=== PATIENT | female | born 1960 | race Caucasian/White ===

== ENCOUNTER 2024-02-24 21:10 | Inpatient (IN) | payer OTHER, SELFPAY ==
--- NOTE | ~2024-02-24 | CT_ITS ---
EXAMINATION: CT ABDOMEN AND PELVIS WITH CONTRAST CLINICAL INFORMATION: Left lower quadrant pain, history of colon cancer with resection COMPARISON: None available. TECHNIQUE: Multidetector volumetric images were obtained from the superior aspect of the liver through the pubic symphysis following administration 85 mL of Omnipaque 350 intravenous contrast. Sagittal and coronal reformatted images were obtained on the technologist's workstation. Oral contrast: No This CT examination was performed using dose optimization techniques as appropriate, variously including the following: *Automated exposure control *Adjustment of mA and/or kV according to patient size (this includes techniques or standardized protocols for targeted exams where dose is matched to indication/reason for exam; i.e. extremities or head) *Use of iterative reconstruction technique DLP: 597 mGy-cm FINDINGS: LUNG BASES: Minimal lower lobe atelectasis. LIVER, GALLBLADDER, AND BILIARY TREE: The liver is normal in size, shape, and attenuation. No focal hepatic lesion or biliary ductal dilatation is present. The gallbladder is unremarkable with no evidence of radiopaque gallstones, gallbladder wall thickening, or obvious pericholecystic inflammatory changes. PANCREAS: Unremarkable. SPLEEN: Unremarkable. ADRENAL GLANDS: Unremarkable. KIDNEYS AND URETERS: Bilateral nephrograms are symmetric. No hydronephrosis or obstructing calculus identified. Tiny hypodensity in the right upper pole statistically favors a cyst; no follow-up recommended. BLADDER: Mildly distended and grossly unremarkable. GASTROINTESTINAL TRACT: Suture line is present in the sigmoid colon. No evidence of bowel obstruction or significant wall thickening. The appendix is fluid-filled and dilated to approximately 1.4 cm in the right lower quadrant and also contains a few appendicoliths. There is mild surrounding stranding, and overall appearance is suspicious for acute appendicitis. No free fluid or free air is seen. ABDOMINAL WALL: No significant hernia is appreciated. LYMPH NODES: Normal. VASCULAR: Scattered atherosclerotic calcifications. PELVIC VISCERA: Unremarkable. OSSEOUS STRUCTURES: Disc space narrowing noted in the lower lumbar spine. CT/CT abdomen pelvis w IV con IMPRESSION: Findings suspicious for acute appendicitis as described above.
[2024-02-24 21:17] VITALS: BP 122/59; BP 157/90; PULSE 60; PULSE 72; RESP 14; TEMP 36.6; O2SAT 94; O2SAT 95; BMI 28.5
--- NOTE | 2024-02-24 21:28 | ECG_ITS ---
Test Reason : ABD PAIN Blood Pressure : / mmHG Vent. Rate : 073 BPM Atrial Rate : 073 BPM P-R Int : 184 ms QRS Dur : 096 ms QT Int : 404 ms P-R-T Axes : 066 023 061 degrees QTc Int : 445 ms Normal sinus rhythm with sinus arrhythmia Possible Left atrial enlargement Incomplete right bundle branch block Borderline ECG No previous ECGs available Referred By: Generic ED Physician Electronically Signed By:Ankur Clements
[2024-02-24 22:04] LABS: Basophils Percent Auto 0.2 % (0-2); Eosinophils Percent Auto 0.1 % (0-4); Hemoglobin 14.5 g/dl (12.0-16.0); Imm Gran Abs Auto 0.06 X10*3/uL (0.00-0.03); Imm Gran Pct Auto 0.4 % (0.0-0.4); Lymphocytes Absolute Auto 0.9 X10*3/uL (1.2-4.9); Lymphocytes Percent Auto 5.2 % (20-40); MANUAL DIFF FLAG SCAN; Mean Corpuscular HGB Conc 36.3 g/dl (31.0-35.0); Mean Corpuscular Hemoglobin 32.7 pg (27.0-33.0); Mean Corpuscular Volume 90.1 fL (80.0-98.0); Mean Platelet Volume 9.8 fL (9.4-12.3); Monocytes Absolute Auto 0.5 X10*3/uL (0.1-1.2); Monocytes Percent Auto 2.9 % (2-11); Neutrophils Percent Auto 91.2 % (45-73); Platelet Count 252 X10*3/uL (160-400); Red Blood Count 4.44 X10*6/uL (4.20-5.50); Red Cell Distribution Width 12.1 % (11.0-16.0); SCAN SMEAR FLAG 1; White Blood Count 16.5 X10*3/uL (4.8-10.8)
[2024-02-24 22:17] LABS: Alanine Aminotransferase 29 U/L (0-31); Albumin Level 4.4 g/dL (3.5-5.0); Alkaline Phosphatase 97 U/L (39-117); Anion Gap 15 (12-20); Aspartate Amino Transferase 24 U/L (5-31); Bilirubin Direct 0.3 mg/dL (0.0-0.5); Blood Urea Nitrogen 12 mg/dL (9-16); Calcium 9.3 mg/dL (8.4-10.2); Carbon Dioxide 23 mmol/L (22-29); Chloride 103 mmol/L (96-108); Creatinine Clr Calc Pharmacy 114.6; Estimated Glomerular Filt Rate > 60; Glucose Random 145 mg/dL (60-115); Lipase 22 U/L (8-78); Potassium 3.8 mmol/L (3.3-5.1); Sodium 137 mmol/L (135-145); Total Protein 6.9 g/dL (6.5-8.0)
[2024-02-24 22:35] LABS: Troponin-I High Sensitivity < 2.7 ng/L (<3.5-17.0)
[2024-02-24 22:36] LABS: SLIDE REVIEW VERIFIED
--- NOTE | 2024-02-24 22:43 | ED.ABDPAIN ---
HPI - Abdominal Pain General Chief Complaint: Abdominal Pain Stated Complaint: ABD PAIN HX COLON CA Time Seen by Provider: 02/24/24 21:38 Source: patient and family Mode of arrival: ambulatory Limitations: no limitations History of Present Illness HPI narrative: Patient comes to the emergency room complaining of abdominal pain. Patient states that approximately 10 hours ago patient started having sharp left lower quadrant pain. Patient states that the pain is constant, patient has had multiple episodes of nausea vomiting, no diarrhea. Patient denies hematuria or dysuria, no flank pain. Related Data Allergies Allergy/AdvReac Type Severity Reaction Status Date / Time Sulfa (Sulfonamide Allergy Rash Verified 02/24/24 21:26 Antibiotics) Review of Systems Review of Systems Constitutional : No Weight loss, No Fever, No Chills, No Night Sweats, No Fatigue, No Malaise ENT/Mouth : No Hearing loss, No Ear Pain, No Nasal Congestion, No Sinus Pain, No Hoarseness, No sore throat, No Rhinorrhea, No Swallowing Difficulty Eyes: No Eye Pain, No Swelling, No Redness, No Foreign Body, No Discharge, No Vision Changes Cardiovascular : No Chest Pain, No SOB, No Dyspnea on Exertion, No Orthopnea, No Edema, No Palpitations Respiratory : No Cough, No Sputum, No Wheezing, No Smoke Exposure, No Dyspnea Gastrointestinal : Patient complaining of nausea and vomiting, no diarrhea, complaining of left lower quadrant pain, constant, nonradiating Genitourinary : no irregular bleeding, No Dysuria, No Urinary Frequency, No Hematuria, No Urinary Incontinence, No Urgency, No Flank Pain, No Urinary Flow Changes, No Hesitancy Musculoskeletal : No joint pain, No Myalgias, No Joint Swelling Skin : No Skin Lesions, No rash Neuro : No Weakness, No Numbness, No Paresthesias, No Loss of Consciousness, No Dizziness, No Headache Psych : No Anxiety/Panic, No Depression, No SI/HI/AH/VH, No Social Issues, Heme/Lymph: No Bruising, No Bleeding,No Lymphadenopathy Endocrine : No Polyuria, No Polydipsia, No Temperature Intolerance [facility] Past Medical History Medical History (Updated 02/25/24 @ 00:51 by Maggy Francois MD) Colon cancer Surgical History (Updated 02/24/24 @ 22:45 by Maggy Francois MD) History of partial colectomy Social History Social History Smoked in Last 30 Days: Yes Use of substances other than those prescribed or required for medical reasons: No Advance Directives: No Advance Directives Information Provided: Yes Do you have a plan to hurt others: No Plan Patient : No Physical Exam ED Vital Signs: Vital Signs - 24 hr 02/24/24 21:17 Temperature 97.9 F Pulse Rate 72 Respiratory Rate 14 Blood Pressure 122/59 L Pulse Oximetry 94 Oxygen Delivery Method Room Air BMI result Body Mass Index 28.5 Const Other: Appearance: Alert. Oriented X3. Patient looks very uncomfortable Eyes: Pupils equal, round and reactive to light. ENT: Pharynx normal. Neck: Normal inspection. Neck supple. No lymph nodes noted. No crepitus CVS: Normal heart rate and rhythm. Pulses normal. Normal S1 and S2 Respiratory: No respiratory distress. Breath sounds normal. No Wheezing. No rales Abdomen: Soft , nondistended, significantly tender to palpation in the right lower quadrant, but also tenderness to palpation in the left lower quadrant, no rebound or guarding Skin: Skin warm and dry. Normal skin color. Normal skin turgor. Extremities: No lower extremity edema. No Lacerations. No Rash Neuro: Oriented X 3. No motor deficit. No sensory deficit. Moving all extremities. No slurred speech. CN 2 through 12 grossly intact Psych: calm, cooperative, normal affect Course Course Course Narrative: Patient receiving IV fluids, Zofran and morphine. Medical Decision Making Medical Decision Making [facility] Narrative: -my interpretation of labs, patient's white blood cell count 16.5, chemistry unremarkable LFTs within normal limits, lipase normal, troponin negative -my deposition CT scan: Appendicolith pending, likely appendicitis -CT scan report: Appendicitis -I discussed the patient with Dr. Rodriguez, patient being admitted Differential Diagnosis Differential Diagnoses: The differential diagnosis associated with the presentation includes (Small-bowel obstruction, appendicitis, diverticulitis, perforation) Admission/Observation Consideration of admission/observation: Escalation of care including admission/observation considered Consult Healthcare Provider Management of the patient was discussed with: Journeyman Electrician Pv Installer Lab Data [facility] Lab Attestation statement: I reviewed the patient's lab results. 02/24/24 21:58 02/24/24 21:58 Labs: Lab Results 02/24/24 Range/Units 21:58 WBC 16.5 H (4.8-10.8) X10*3/uL RBC 4.44 (4.20-5.50) X10*6/uL Hgb 14.5 (12.0-16.0) g/dl Hct 40.0 (37.0-47.0) % MCV 90.1 (80.0-98.0) fL MCH 32.7 (27.0-33.0) pg MCHC 36.3 H (31.0-35.0) g/dl RDW 12.1 (11.0-16.0) % Plt Count 252 (160-400) X10*3/uL MPV 9.8 (9.4-12.3) fL Immature Gran % (Auto) 0.4 (0.0-0.4) % Neut % (Auto) 91.2 H (45-73) % Lymph % (Auto) 5.2 L (20-40) % Archuleta % (Auto) 2.9 (2-11) % Eos % (Auto) 0.1 (0-4) % Baso % (Auto) 0.2 (0-2) % Lymph # (Auto) 0.9 L (1.2-4.9) X10*3/uL Archuleta # (Auto) 0.5 (0.1-1.2) X10*3/uL Eos # (Auto) 0.0 (0.0-0.4) X10*3/uL Baso # (Auto) 0.0 (0.0-0.2) X10*3/uL Abs Immat Gran (auto) 0.06 H (0.00-0.03) X10*3/uL Absolute Neuts (auto) 15.0 H (2.0-8.3) x10*3/uL Absolute Nucleated RBC 0.000 (0.0-0.012) X10*3/uL Nucleated RBC % (auto) 0.0 (0.0-0.2) /100WBC Smear Tech's Comments VERIFIED Sodium 137 (135-145) mmol/L Potassium 3.8 (3.3-5.1) mmol/L Chloride 103 (96-108) mmol/L Carbon Dioxide 23 (22-29) mmol/L Anion Gap 15 (12-20) BUN 12 (9-16) mg/dL Creatinine 0.62 (0.5-1.4) mg/dL Estim Creat Clear Calc 114.6 Estimated GFR > 60 Random Glucose 145 H (60-115) mg/dL Calcium 9.3 (8.4-10.2) mg/dL Total Bilirubin 1.0 (0.0-1.0) mg/dL Direct Bilirubin 0.3 (0.0-0.5) mg/dL AST 24 (5-31) U/L ALT 29 (0-31) U/L Alkaline Phosphatase 97 (39-117) U/L Troponin I High Sens < 2.7 (<3.5-17.0) ng/L Total Protein 6.9 (6.5-8.0) g/dL Albumin 4.4 (3.5-5.0) g/dL Lipase 22 (8-78) U/L Independent Interpretation I performed an independent interpretation of an: CT Scan Radiology Impression Radiologist Impression: FINDINGS: LUNG BASES: Minimal lower lobe atelectasis. LIVER, GALLBLADDER, AND BILIARY TREE: The liver is normal in size, shape, and attenuation. No focal hepatic lesion or biliary ductal dilatation is present. The gallbladder is unremarkable with no evidence of radiopaque gallstones, gallbladder wall thickening, or obvious pericholecystic inflammatory changes. PANCREAS: Unremarkable. SPLEEN: Unremarkable. ADRENAL GLANDS: Unremarkable. KIDNEYS AND URETERS: Bilateral nephrograms are symmetric. No hydronephrosis or obstructing calculus identified. Tiny hypodensity in the right upper pole statistically favors a cyst; no follow-up recommended. BLADDER: Mildly distended and grossly unremarkable. GASTROINTESTINAL TRACT: Suture line is present in the sigmoid colon. No evidence of bowel obstruction or significant wall thickening. The appendix is fluid-filled and dilated to approximately 1.4 cm in the right lower quadrant and also contains a few appendicoliths. There is mild surrounding stranding, and overall appearance is suspicious for acute appendicitis. No free fluid or free air is seen. ABDOMINAL WALL: No significant hernia is appreciated. LYMPH NODES: Normal. VASCULAR: Scattered atherosclerotic calcifications. PELVIC VISCERA: Unremarkable. OSSEOUS STRUCTURES: Disc space narrowing noted in the lower lumbar spine. CT/CT abdomen pelvis w IV con IMPRESSION: Findings suspicious for acute appendicitis as described above. Medications Administered Discontinued Medications Generic Name Dose Route Start Last Admin Trade Name Freq PRN Reason Stop Dose Admin Sodium Chloride 1,000 mls @ 999 mls/hr 02/24/24 22:23 02/25/24 00:27 Ns IVCONT 02/24/24 23:23 Infused .Q1H1M ONE Infusion Iohexol 100 ml 02/24/24 22:44 02/24/24 22:44 Iohexol 350 Mg/Ml 100 Ml Infus..Btl IV 02/24/24 22:45 85 ml ONCE ONE Administration Morphine Sulfate 4 mg 02/24/24 22:23 02/24/24 23:07 Morphine Sulfate 4 Mg/Ml Cartridge IVPUSH 02/24/24 22:24 4 mg ONCE ONE Administration Protocol Ondansetron HCl 4 mg 02/24/24 23:13 02/24/24 23:22 Ondansetron Hcl 4 Mg/2 Ml Vial IVPUSH 02/24/24 23:14 4 mg ONCE ONE Administration Critical Care Time Critical Care Time Critical Care Time: Yes Total Critical Care Time: 60 Attestation: I have personally provided critical care time. Time includes review of lab data, radiology results, discussion with consultants, and monitoring for potential decompensation. Intervention performed as documented. Discharge Plan Discharge Clinical Impression: Acute appendicitis Patient Disposition: Admitted As Inpatient Print Language: Azerbaijani
[2024-02-24] MEDS: iohexoL 350 MG/ML 100 ML INFUS..BTL IV (22:44)
--- OUTSIDE RECORDS SUMMARY | 2024-02-24 22:50 | XMS_ITS | Continuity of Care Document ---
Author Organization [facility] ter Address [address] [place] [address]- Care Team Providers Care Manager Of Digital Name Role Phone Kelsie Webb MD A Primary Care Physician [place] [facility] [place] 08/02/20 - 08/02/[address] [address] [facility] Discharge Disposition: A-D/C Home Attending Physician: Sivan Oneill MD Admitting Physician: Sivan Oneill MD Referring Physician: Sivan Oneill MD Allergies, Adverse Reactions, Alerts Substance Reaction Severity Status sulfonamides Active Flonase rash Active Immunizations Given and Recorded Vaccine Date Status Refusal Reason tetanus-diphtheria toxoids (Td) 1 12/15/07 Given 1Admin Note: MA BIOLOGIC NAOMI GIVEN TODAY DATE ON NAOMI 03/28/1994 Medications Advil By Mouth, Every 6 hours, Refills 0, Maintenance, 12/09/17 15:01:02 Start Date: 12/09/17 Status: Ordered Magui By Mouth, 0 Refills, Maintenance, 12/09/17 15:00:56 Start Date: 12/09/17 Status: Ordered cyanocobalamin 1000 mcg/ml injectable solution See Instructions, 1mL subcutaneous injection given in patient's Left arm Lot#: [id number] Exp: 08/2019 [facility]:[id number], # 1 each, 0 Refills, Maintenance, 08/25/18 15:06:41 EST Start Date: 08/25/18 Status: Ordered cyanocobalamin 1000 mcg/ml injectable solution = 1,000 mcg, Intramuscular, Once, Admin left deltoid [facility] [id number], # 1 mL, 0 Refills, Maintenance, 10/20/18 15:23:43 EST Start Date: 10/20/18 Status: Ordered furosemide 20 mg oral tablet 20 mg, 1, tablet, By Mouth, Every other day, 1 tab q other day as needed., # 15 tablet, Refills 2, Tot. Refills 2, Maintenance, 07/13/18 11:30:25 EDT, Route to Pharmacy Electronically, [id number], [facility]/pharmacy #[id number] Start Date: 07/13/18 Status: Ordered Problem List Condition Effective Dates Status Health Status Inform ant Allergic rhinitis(Confirmed) Active Chronic folliculitis(Confirmed) Active Chronic low back pain(Confirmed) Active Cigarette smoker(Confirmed) Active Gastroesophageal reflux dise ase with hiatal hernia(Confirmed) Active S/P partial colectomy(Confirmed) 1 Active Hereditary hemochromatosis(Confirmed) Active Lumbar disc(Confirmed) Active Cancer of colon(Confirmed) Active 1Dr Nino 09/02 Vital Signs Most recent to oldest [Reference Range]: 1 2 3 Height 177 cm (08/02/20 1:38 PM) Oxygen Saturation [94-100 %] 98 % (08/02/20 2:36 PM) 98 % (08/02/20 2:26 PM) 98 % (08/02/20 1:38 PM) Pulse Rate [55-90 bpm] 112 bpm *H* (08/02/20 1:38 PM) Blood Pressure [90-138/55-84 mm Hg] 109/63mm Hg (08/02/20 2:36 PM) 106/59mm Hg (08/02/20 2:26 PM) 130/95mm Hg (08/02/20 1:38 PM) Respiratory Rate [16-30 br/min] 18 br/min (08/02/20 2:36 PM) 16 br/min (08/02/20 2:26 PM) 16 br/min (08/02/20 1:38 PM) Temperature [96.8-100.4 DegF] 99.6 DegF (08/02/20 1:38 PM) Mode of Delivery (Oxygen) Room air (08/02/20 2:36 PM) Room air (08/02/20 2:26 PM) Room air (08/02/20 1:38 PM) Blood pressure sites Arm, left (08/02/20 2:36 PM) Arm, left (08/02/20 2:26 PM) Arm, left (08/02/20 1:38 PM) Temperature Route Temporal (08/02/20 1:38 PM) Dry Weight 84 kg (08/02/20 1:38 PM) Dry Weight Obtained Via Patient/family s tated (08/02/20 1:38 PM) Social History Social History Type Response Smoking Status Current every day gagan connell; Type: Cigarettes; Tobacco use times per day: 1/2 to 3/4 of a pack a day; entered on: 09/13/13 Sex
--- OUTSIDE RECORDS SUMMARY | 2024-02-24 22:50 | XMS_ITS | Continuity of Care Document ---
Author Organization [facility] ter Address [address] [place] [id number]- Care Team Providers Care Experience Designer Name Role Phone Jon SAHNI, Kelsie A Primary Care Physician Encounter [facility] Date(s): 12/01/19 - 12/01/[address] [address]- [facility] Attending Physician: Not on Staff, Attending MD Allergies, Adverse Reactions, Alerts Substance Reaction [...] patient's Left arm Lot#: [id number] Exp: 08/[address] [facility]:[id number], # 1 each, 0 Refills, Maintenance, 08/25/18 15:06:41 EST Start Date: 08/25/18 Status: Ordered cyanocobalamin 1000 mcg/ml injectable solution = 1,000 mcg, Intramuscular, Once, Admin left deltoid [facility] [id number], # 1 mL, 0 Refills, Maintenance, 10/20/18 15:23:43 EST Start Date: 10/20/18 Status: Ordered furosemide 20 mg oral tablet 20 mg, 1, tablet, By Mouth, Every other day, 1 tab q other day as needed., # 15 tablet, Refills 2, Tot. Refills 2, Maintenance, 07/13/18 11:30:25 EDT, Route to Pharmacy Electronically, [id number], [id number] Start Date: 07/13/18 Status: Ordered Problem List Condition Effective Dates Status Health Status Inform ant Allergic rhinitis(Confirmed) Active Chronic folliculitis(Confirmed) Active Chronic low back pain(Confirmed) Active Cigarette smoker(Confirmed) Active Gastroesophageal reflux dise ase with hiatal hernia(Confirmed) Active S/P partial colectomy(Confirmed) 1 Active Hereditary hemochromatosis(Confirmed) Active Lumbar disc(Confirmed) Active Cancer of colon(Confirmed) Active 1Dr Nino 09/02 Social History Social History Type Response Smoking Status Current every day gagan connell; Type: Cigarettes; Tobacco use times per day: 1/2 to 3/4 of a pack a day; entered on: 09/13/13 Sex
--- OUTSIDE RECORDS SUMMARY | 2024-02-24 22:50 | XMS_ITS | Continuity of Care Document ---
Author [facility] Address [address] [address] [address] [place] [address]- Care Team Providers Care Older Adult Social Work Specialist Name Role Phone Jon SAHNI, Kelsie A Primary Care Physician Encounter [facility] Date(s): 04/26/20 - 05/26/[address] [place] [address]- [place] States Allergies, Adverse Reactions, Alerts Substance Reaction Severity [...] patient's Left arm Lot#: [id number] Exp: 08/2019 [facility]:[id number], # 1 each, 0 Refills, Maintenance, 08/25/18 15:06:41 EST Start Date: 08/25/18 Status: Ordered cyanocobalamin 1000 mcg/ml injectable solution = 1,000 mcg, Intramuscular, Once, Admin left deltoid [facility] [id number], # 1 mL, 0 Refills, Maintenance, 10/20/18 15:23:43 EST Start Date: 10/20/18 Status: Ordered furosemide 20 mg oral tablet 20 mg, 1, tablet, By Mouth, Every other day, 1 tab q other day as needed., # 15 tablet, Refills 2, Tot. Refills 2, Maintenance, 07/13/18 11:30:25 EDT, Route to Pharmacy Electronically, [id number], [id number] Start Date: 07/13/18 Status: Ordered Problem List [...]
--- OUTSIDE RECORDS SUMMARY | 2024-02-24 22:50 | XMS_ITS | Continuity of Care Document ---
Author Organization [facility] Address [address] [place] [address] [address] [place] [address]- Care Team Providers Care Galley Cook Name Role Phone Jon SAHNI, Kelsie A Primary Care Physician [place] [facility] [place] 02/17/20 - 03/18/[address] [place] [address]- [facility] Attending Physician: Fela Harrison Admitting Physician: Fela Harrison Referring Physician: AdmtrFela Allergies, Adverse Reactions, Alerts Substance Reaction Severity [...] patient's Left arm Lot#: [id number] Exp: 08/2019 [facility]:[id number], # 1 each, 0 Refills, Maintenance, 08/25/18 15:06:41 EST Start Date: 08/25/18 Status: Ordered cyanocobalamin 1000 mcg/ml injectable solution = 1,000 mcg, Intramuscular, Once, Admin left deltoid [facility] [id number], # 1 mL, 0 Refills, Maintenance, 10/20/18 15:23:43 EST Start Date: 10/20/18 Status: Ordered furosemide 20 mg oral tablet 20 mg, 1, tablet, By Mouth, Every other day, 1 tab q other day as needed., # 15 tablet, Refills 2, Tot. Refills 2, Maintenance, 07/13/18 11:30:25 EDT, Route to Pharmacy Electronically, [id number], [facility]/pharmacy #[id number] Start Date: 07/13/18 Status: Ordered [...]
[2024-02-24] MEDS: Morphine Sulfate 4 MG/ML CARTRIDGE IVPUSH (23:07)
[2024-02-24] MEDS: 0.9 % Sodium Chloride 1,000 ML 999 ML IVCONT (23:07)
[2024-02-24] MEDS: ondansetron HCL 4 MG/2 ML VIAL IVPUSH (23:22)
--- NOTE | 2024-02-24 23:42 | PC.NURSE ---
this RN resumed care of pt at 1100. pt a&ox4. vss and up to date. pt currently c/o 06/28 LLQ abd pain. pt actively dry heaving. pt medicated per provider order. effectiveness pending. pt waiting for CT scan results at this time. no sob/wob noted. respirations even and unlabored. bedside for support. plan of care ongoing. call masterson placed within reach.
[2024-02-25] VITALS (12 sets, daily range): BP systolic 104–150; BP diastolic 52–85; PULSE 64–90; RESP 16–20; TEMP 36.3–37.7; O2SAT 90–98; BMI 27.3
[2024-02-25] MEDS: Lactated Ringers 1,000 ML 80 ML IVCONT ×3 (01:25→21:16)
[2024-02-25] MEDS: Piperacillin Sodium/Tazobactam 4.5 GM in 0.9 % Sodium Chloride 100 ML IV (01:25)
--- NOTE | 2024-02-25 01:26 | PC.NURSE ---
IVF/abx administered per provider order. pt spoke w/ dr. hodgson/aware of plan of care moving forward in regards to being admitted. pt verbalizes being NPO x 1200 yesterday. plan of care ongoing. call masterson placed within reach.
[2024-02-25] MEDS: Morphine Sulfate 2 MG/ML CARTRIDGE IVPUSH ×4 (03:29→13:46)
--- NOTE | 2024-02-25 03:30 | PC.NURSE ---
pt ambulates to the restroom independently w/ strong steady gait. UA obtained/sent to lab. pt verbalizes pain no longer in LLQ and that it's now radiated to her RLQ. rating pain at an 8/ - pt medicated w/ prn medication. effectiveness pending.
[2024-02-25 03:36] LABS: Appearance Urine Clear; Color Urine Yellow; Glucose Urine UA Negative (Negative); Leukocyte Esterase Urine Negative (Negative); Nitrite Urine Negative (Negative); Specific Gravity - Urine >= 1.030 (1.005-1.025); UMIC TRIGGER UACC YES; Urine Blood Small (1+) (Negative); Urine Ketones Trace mg/dL (Negative); Urine Protein Negative (Neg-Trace)
[2024-02-25 03:39] LABS: Bacteria Urine None Seen (None Seen); Hyaline Casts Urine 0-2 /LPF (0-2); Squamous Epithelial Cell Urine 0-2 /HPF (0-2); WBC Urine 0-5 /HPF (0-5)
[2024-02-25] MEDS: Piperacillin Sodium/Tazobactam 3.375 GM in 0.9 % Sodium Chloride 50 ML IV ×4 (06:11→23:33)
--- NOTE | 2024-02-25 06:45 | PC.NURSE ---
pt medicated w/ prn medication. effectiveness pending.
--- NOTE | 2024-02-25 07:42 | PM.HPGS ---
History of Present Illness History of Present Illness Date of Service: 02/25/24 <Mile Harper PA-C - Last Filed: 02/25/24 07:54> 02/26/24 <Ezequiel Rodriguez MD - Last Filed: 02/26/24 09:21> Chief complaint: Abd pain <Mile Harper PA-C - Last Filed: 02/25/24 07:54> Narrative: Sayda Herrera is a 63 year old female with PMH significant for emphysema, hx of sigmoid colon CA s/p resection 10 years ago at [facility] who presented to the ED with complaints of abdominal pain. Patient reports acute onset of sharp left lower quadrant pain yesterday. It has more become more localized to the RLQ this morning. Patient states that the pain is sharp, constant and is associated with nausea and multiple episodes of vomiting. She denies fevers, chills, diarrhea, constipation, sick contacts. Work up in the ED included CBC, BMP and LFTs which was significant for leukocytosis 16.5. CT scan abd/pelvis was performed which showed fluid-filled, dilated appendix with a few appendicoliths with mild surrounding stranding. <Mile Harper PA-C - Last Filed: 02/25/24 07:54> Review of Systems Constitutional: Constitutional: Denies chills and Denies fever(s) <EN Farias Last Filed: 02/25/24 07:54> ENT: Denies dizziness <Mile Harper PA-C - Last Filed: 02/25/24 07:54> Cardiovascular: Cardiovascular: Denies chest pain <Mile Harper PA-C - Last Filed: 02/25/24 07:54> Gastrointestinal: Gastrointestinal: Reports as per HPI <EN Farias Last Filed: 02/25/24 07:54> Genitourinary: Genitourinary: Denies hematuria and Denies dysuria <EN Farias Last Filed: 02/25/24 07:54> Integumentary/Breasts: Skin/Breast: Denies rash and Denies jaundice <Mile Harper PA-C - Last Filed: 02/25/24 07:54> Neurologic: Denies dizziness <Mile Harper PA-C - Last Filed: 02/25/24 07:54> [facility] Past Medical History Medical History: Medical History (Updated 02/25/24 @ 00:51 by Maggy Francois MD) Colon cancer <Mile Harper PA-C - Last Filed: 02/25/24 07:54> Surgical History Surgical History: Surgical History (Updated 02/24/24 @ 22:45 by Maggy Francois MD) History of partial colectomy <EN Farias Last Filed: 02/25/24 07:54> Social History Social History: Social History Household Members: Spouse Housing: House Do you presently have visiting nurse or other home services: No Patient Tobacco Use Status: Current everyday Tobacco user Tobacco use type: Cigarette Cigarette Packs Per Day: 1 Cigarettes Per Day: 20.0 Years Smoked: 30 Smoked in Last 30 Days: Yes Patient Interested in Nicotine Replacement: No Patient Given Instructions on How to Stop Smoking: Yes Date Education Initiated: 02/25/24 Second Hand Smoke Exposure: No Use of substances other than those prescribed or required for medical reasons: No Currently Displaying Signs/Symptoms of Drug Intoxication Withdrawal: No Any prior treatment program specific to substance use: No Have you been hit, kicked, punched, or otherwise hurt by someone within the past year? If so, by whom?: No Do you feel safe in your current relationship?: Yes Is there a partner from a previous relationship who is making you feel unsafe now?: No Are you made to feel afraid or neglected: No Are you DNR?: No Advance Directives: Yes Advance Directives on File: Yes Advance Directives Date on File: 02/25/24 Do you have a plan to hurt others: No Plan Recently lost weight without trying: No Eating poorly because of decreased appetite: No Nutrition Risks: No Nutritional Risk Patient : No : No Poor oral hygiene: No service: No <Mile Harper PA-C - Last Filed: 02/25/24 07:54> Meds Allergies/Adverse reactions: Allergies Allergy/AdvReac Type Severity Reaction Status Date / Time Sulfa (Sulfonamide Allergy Rash Verified 02/24/24 21:26 Antibiotics) <Mile Harper PA-C - Last Filed: 02/25/24 07:54> Active Medications: Current Medications Lactated Ringer's (Lr) 1,000 mls @ 80 mls/hr IVCONT .[id number] [facility] Last Admin: 02/25/24 01:25 Dose: 80 mls/hr Piperacillin Sod/Tazobactam (Sod 3.375 gm/ Sodium Chloride) 50 mls @ 100 mls/hr IV Q6H [facility] Last Infusion: 02/25/24 06:42 Dose: Infused Morphine Sulfate (Morphine Sulfate 2 Mg/Ml Cartridge) 2 mg IVPUSH Q3H PRN; Protocol PRN Reason: Pain, Severe (Pain Scale 7-10) Last Admin: 02/25/24 06:43 Dose: 2 mg Sodium Chloride (0.9 % Sodium Chloride Flush 3 Ml Syringe) 3 ml IVFLUSH QSHIFT [facility] <EN Farias Last Filed: 02/25/24 07:54> Home medications: Home Medications ?Medication ?Instructions ?Recorded ?Confirmed ?Last Taken ?Type cholecalciferol (vitamin D3) 125 125 mcg PO DAILY 02/25/24 02/25/24 Unknown History mcg (5,000 unit) tablet (Vitamin D3) cyanocobalamin (vitamin B-12) 1,000 mcg IM Q42D 02/25/24 02/25/24 2 Weeks Ago History 1,000 mcg/mL injection kit ~02/11/24 ibuprofen 200 mg tablet (Advil) 400 mg PO Q6H PRN Back Pain 02/25/24 02/25/24 Unknown History multivitamin 1 tab PO DAILY 02/25/24 02/25/24 Unknown History <EN Farias Last Filed: 02/25/24 07:54> Physical Exam Vital Signs: Vital Signs: Last Vital Signs Temp 98.4 F 02/25/24 06:04 Pulse 83 02/25/24 06:04 Resp 16 02/25/24 06:04 BP 150/71 H 02/25/24 06:04 Pulse Ox 92 02/25/24 06:04 O2 Del Method Room Air 02/25/24 06:04 BMI result Body Mass Index 28.5 <EN Farias Last Filed: 02/25/24 07:54> Const: General: comfortable, no acute distress and alert <EN Farias Last Filed: 02/25/24 07:54> Resp: Effort & Inspection: normal respiratory effort <EN Farias Last Filed: 02/25/24 07:54> GI: Inspection: No distended and Yes scar (supraumbilical and two small port scars just lateral on right ) <EN Farias Last Filed: 02/25/24 07:54> Palpation (GI): Soft to palpation, Tenderness to palpation present (GI) in the RLQ (moderate ); Rovsing's sign negative and no guarding <EN Farias Last Filed: 02/25/24 07:54> Skin: General skin exam: no rashes or lesions noted <EN Farias Last Filed: 02/25/24 07:54> Results Results Labs: Short CBC 02/24/24 Range/Units 21:58 WBC 16.5 H (4.8-10.8) X10*3/uL Hgb 14.5 (12.0-16.0) g/dl Hct 40.0 (37.0-47.0) % Plt Count 252 (160-400) X10*3/uL BMP 02/24/24 21:58 Sodium 137 Potassium 3.8 Chloride 103 Carbon Dioxide 23 BUN 12 Creatinine 0.62 Calcium 9.3 Liver Function 02/24/24 Range/Units 21:58 Total Bilirubin 1.0 (0.0-1.0) mg/dL Direct Bilirubin 0.3 (0.0-0.5) mg/dL AST 24 (5-31) U/L ALT 29 (0-31) U/L Alkaline Phosphatase 97 (39-117) U/L Albumin 4.4 (3.5-5.0) g/dL Urine 02/25/24 Range/Units 03:16 Urine Color Yellow Urine Appearance Clear Urine pH 7.0 (5.0-9.0) Ur Specific [place] >= 1.030 H (1.005-1.025) Urine Protein Negative (Neg-Trace) mg/dL Urine Glucose (UA) Negative (Negative) mg/dL <Mile Harper PA-C - Last Filed: 02/25/24 07:54> Abdomen CT scan report/results: report reviewed and image reviewed <Mile Harper PA-C - Last Filed: 02/25/24 07:54> Assessment and Plan (1) Acute appendicitis: Status: Acute <Mile Harper PA-C - Last Filed: 02/25/24 07:54> 63 year old female with a abdominal pain, leukocytosis, with a CAT scan showing a dilated appendix with an appendicolith consistent with acute appendicitis I explained to her the technique of laparoscopic appendectomy possible open appendectomy I reviewed the risks including but not limited to bleeding, infections, bowel injury, staple line leak, as well as the benefits and alternatives She has agreed to proceed She understands what to expect postoperatively She has a history of sigmoid resection for cancer Patient was seen and examined independently <Ezequiel Rodriguez MD - Last Filed: 02/26/24 09:21> Sayda Herrera is a 63 year old female with PMH significant for emphysema, hx of sigmoid colon CA s/p resection 10 years ago at [facility] with acute onset abdominal pain now localized to RLQ with moderate RLQ tenderness, leukocytosis 16.[address] scan abd/pelvis suggestive of acute appendicitis. The patient has been admitted to the surgical service for further treatment of the acute appendicitis. Given the presence of appendicoliths, it was recommended to proceed with appendectomy. Risks, benefits, alternatives of laparoscopic possible open appendectomy were reviewed with the patient and included but not limited to bleeding, infection, numbness, pain, scarring, bowel or bladder injury or leak and the patient wishes to proceed. She was added onto the OR schedule for today. She is NPO, on IVF and IV zosyn. <Mile Harper PA-C - Last Filed: 02/25/24 07:54> Quality Stroke Does the patient have a stroke diagnosis?: No <EN Farias Last Filed: 02/25/24 07:54> VTE Prior VTE?: No <EN Farias Last Filed: 02/25/24 07:54> VTE Risk Level:: Medical - moderate - high <Mile Harper PA-C - Last Filed: 02/25/24 07:54> VTE Device Contraindication: N/A - Device Ordered <Mile Harper PA-C - Last Filed: 02/25/24 07:54> VTE Drug Contraindication: N/A - Med Ordered <Mile Harper PA-C - Last Filed: 02/25/24 07:54> Procedures Date of Service Date of Service: 02/25/24 <Mile Harper PA-C - Last Filed: 02/25/24 07:54> 02/26/24 <Ezequiel Rodriguez MD - Last Filed: 02/26/24 09:21>
--- NOTE | 2024-02-25 08:26 | PHA.MEDREC ---
Pharmacy Consult ? Medication Reconciliation Pharmacy has completed the medication reconciliation. Patient takes mostly OTCs. She did mention she can not take a multivitamin with iron.
--- NOTE | 2024-02-25 08:50 | PC.NURSE ---
Pt alert and oriented, breathing even and unlabored, skin WNL. Pt resting comfortably in bed, reports pain meds are helping, denies any new complaints.
--- NOTE | 2024-02-25 13:23 | MHC.CM.PN ---
Met with patient in regards to discharge planning. Patient lives with her , ambulates independently and had no services prior to coming to the hospital. Patient works full-time. No services anticipated to be needed because patient is not homebound. PCP is Dr Avila at [facility] in [place]. Copy of HCP verified to be on file. Patient received 4 Pfizer vaccines. Patient's will transport her home when medically stable. Continue to monitor for d/c needs.
--- NOTE | 2024-02-25 13:43 | PC.NURSE ---
report given to short stay surgery
--- NOTE | 2024-02-25 16:44 | P.CONAN_ITS ---
[facility] Active Problems Active Problems: All Active Problems Acute appendicitis (Acute) Past Medical History Medical History (Updated 02/25/24 @ 00:51 by Maggy Francois MD) Colon cancer Family History Family history of problems with anesthesia: No Surgical History Surgical History (Updated 02/24/24 @ 22:45 by aMggy Francois MD) History of partial colectomy History of Problems with Anesthesia: No Social History Social History Patient Tobacco Use Status: Current everyday Tobacco user Smoked in Last 30 Days: Yes Use of substances other than those prescribed or required for medical reasons: No Advance Directives: Yes Advance Directives on File: Yes Advance Directives Date on File: 02/25/24 Do you have a plan to hurt others: No Plan Nutrition Risks: No Nutritional Risk Patient : No service: No Meds Allergies Allergy/AdvReac Type Severity Reaction Status Date / Time Sulfa (Sulfonamide Allergy Rash Verified 02/24/24 21:26 Antibiotics) Active Medications: Current Medications Lactated Ringer's (Lr) 1,000 mls @ 80 mls/hr IVCONT .[id number] [facility] Last Infusion: 02/25/24 13:41 Dose: 80 mls/hr Piperacillin Sod/Tazobactam (Sod 3.375 gm/ Sodium Chloride) 50 mls @ 100 mls/hr IV Q6H [facility] Last Infusion: 02/25/24 13:41 Dose: Infused Morphine Sulfate (Morphine Sulfate 2 Mg/Ml Cartridge) 2 mg IVPUSH Q3H PRN; Protocol PRN Reason: Pain, Severe (Pain Scale 7-10) Last Admin: 02/25/24 13:46 Dose: 2 mg Ondansetron HCl (Ondansetron Hcl 4 Mg/2 Ml Vial) 4 mg IVPUSH Q6H PRN PRN Reason: nausea/vomiting Sodium Chloride (0.9 % Sodium Chloride Flush 3 Ml Syringe) 3 ml IVFLUSH QSHIFT [facility] Last Admin: 02/25/24 16:30 Dose: Not Given Home Medications ?Medication ?Instructions ?Recorded ?Confirmed ?Last Taken ?Type cholecalciferol (vitamin D3) 125 125 mcg PO DAILY 02/25/24 02/25/24 Unknown History mcg (5,000 unit) tablet (Vitamin D3) cyanocobalamin (vitamin B-12) 1,000 mcg IM Q42D 02/25/24 02/25/24 2 Weeks Ago History 1,000 mcg/mL injection kit ~02/11/24 ibuprofen 200 mg tablet (Advil) 400 mg PO Q6H PRN Back Pain 02/25/24 02/25/24 Unknown History multivitamin 1 tab PO DAILY 02/25/24 02/25/24 Unknown History Exam Height,Weight and Vital Signs: Height 5 ft 10 in Weight 90.2 kg Last Vital Signs Temp 98.4 F 02/25/24 06:04 Pulse 83 02/25/24 06:04 Resp 16 02/25/24 13:46 BP 150/71 H 02/25/24 06:04 Pulse Ox 92 02/25/24 06:04 O2 Del Method Room Air 02/25/24 06:04 Pertinent Lab Results Pertinent Lab Results: Laboratory Tests 02/24/24 02/25/24 21:58 03:16 WBC 16.5 H RBC 4.44 Hgb 14.5 Hct 40.0 MCV 90.1 MCH 32.7 MCHC 36.3 H RDW 12.1 Plt Count 252 MPV 9.8 Immature Gran % (Auto) 0.4 Neut % (Auto) 91.2 H Lymph % (Auto) 5.2 L Bledsoe % (Auto) 2.9 Eos % (Auto) 0.1 Baso % (Auto) 0.2 Lymph # (Auto) 0.9 L [place] # (Auto) 0.5 Eos # (Auto) 0.0 Baso # (Auto) 0.0 Abs Immat Gran (auto) 0.06 H Absolute Neuts (auto) 15.0 H Absolute Nucleated RBC 0.000 Nucleated RBC % (auto) 0.0 Smear Tech's Comments VERIFIED Sodium 137 Potassium 3.8 Chloride 103 Carbon Dioxide 23 Anion Gap 15 BUN 12 Creatinine 0.62 Estim Creat Clear Calc 114.6 Estimated GFR > 60 Random Glucose 145 H Calcium 9.3 Total Bilirubin 1.0 Direct Bilirubin 0.3 AST 24 ALT 29 Alkaline Phosphatase 97 Troponin I High Sens < 2.7 Total Protein 6.9 Albumin 4.4 Lipase 22 Urine Color Yellow Urine Appearance Clear Urine pH 7.0 Ur Specific [place] >= 1.030 H Urine Protein Negative Urine Glucose (UA) Negative Urine Ketones Trace Urine Blood Small (1+) H Urine Nitrite Negative Ur Leukocyte Esterase Negative Urine RBC 11-20 H Urine WBC 0-5 Ur Squamous Epith Cells 0-2 Urine Bacteria None Seen Hyaline Casts 0-2 Airway Mallampati Class: II TM Dist: >3cm Neck ROM: Full Loose/Missing/Broken Teeth: No Heart: rrr Lungs: cta Assessment and Plan Assessment Anesthesia Assessment: Anesthesia Plan Discussed and Chart Reviewed Final Anesthetic Review Family History of Problems with Anesthesia: No History of Problems with Anesthesia: No NPO: Yes ASA Class: II and Emergency Final Preanesthetic Review: No Changes in Pt Med Stat, Meds/Allgs Chart Reviewed, Consent Obtained/Reviewed and Anes Risks/Benef Reviewed Patient Risk: Intermediate Procedure Risk: Intermediate Anesthetic Plan Anesthetic Plan: GA Disposition: Standard PACU
--- NOTE | 2024-02-25 19:59 | W.PM.OPN ---
Operative Note Operative Note Date of Service: 02/25/24 Narrative: Preop diagnosis: acute appendicitis Postop diagnosis: Acute appendicitis, with significant suppuration, erythematous and indurated appendix Procedure: Laparoscopic appendectomy Surgeon: Ezequiel Rodriguez MD Wedding Photographer: BRE Franco student The patient is a 63 year female admitted early this morning because of right lower quadrant pain with a CAT scan showing findings consistent with acute appendicitis with appendicolith. She understood the technique of laparoscopic appendectomy and was aware of the risks, benefits, and alternatives and she had given consent. She was brought to the operating room placed supine under general anesthesia via endotracheal tube. A Marte catheter was inserted. The abdomen was prepped and draped in usual sterile fashion. A surgical time-out was done. The patient was receiving scheduled Zosyn I made a short infraumbilical incision using a blade 15. This carried down through the full-thickness of the skin subcutaneous fat down to the fascia. The fascia was incised. The peritoneum was entered. Through this incision a Wills port was introduced. Pneumoperitoneum was introduced to a pressure of 15 mm Hg. From here on the rest of the procedure was done under vision with a 10 mm laparoscope. With laparoscopic visualization I proceeded to insert a 5/ 12 mm port in the left lower quadrant the small stab incision. A 5 mm ports introduced a small incision on the suprapubic margin. Patient was placed in a steep head-down and [id number] position. Graspers were placed through this working ports. I then proceeded to identify the cecum. By followed this I noticed an area of marked induration with a lot of suppuration and indurated fatty areolar tissue. I proceeded to then trace 1 of the tenia and by doing so I was able to see what appeared to be the base of the appendix. I bluntly dissected this using the [place] dissector and was able to at separate part of the base. I was able to identify a plane of dissection the and inflamed fatty areolar tissue from the cecum and by doing so with blunt dissection I was able to carefully define the rest of the appendix going from the base towards distally. I applied a grasper at the mid part of the appendix and by putting this on tension I proceeded to then carefully separate the entire gallbladder from the cecum which it was markedly adherent to. I did this with careful serial ligation of the mesentery as well which we identified as we carefully the appendix. I proceeded with this gentle dissection carefully all the way to the tip of the appendix until the entire length of the appendix was completely from the cecum. I put the appendix on stretch and applied an Endo-SMITH 30 mm stapler across the base. This base of the appendix was transected. Although the area was inflamed, this appeared viable. The enzo were intact. I retrieved the appendix through an endobag through the umbilical incision. I reinserted all ports and re-insufflated I examined all 4 quadrants and there was no other pathology or any bowel injury seen I re-examined the base of the appendix and the staple line was intact. I irrigated this area and suctioned the irrigant fluid. There was good hemostasis. I therefore desufflated the port sites. I removed all ports under vision in the laparoscope and removed the umbilical port last I closed the fascia of the umbilical incision with [id number] Polysorb 0 stitch. Skin closure was achieved on all incisions using Polysorb 4-0 subcuticular running sutures. All incisions were infiltrated with Marcaine 0.5% for postop analgesia. Steri-Strips and dressings were applied and the procedure was completed The patient tolerated procedure well. There were no immediate complications. Initial and final counts of sponges and instruments were correct. Estimated blood loss was about 25 cc. The patient was extubated without difficulty and transferred to the recovery room with stable vital signs
[2024-02-25] MEDS: oxyCODONE HCl Immed Release 5 MG TABLET 10 MG PO (20:35)
[2024-02-25] MEDS: 0.9 % Sodium Chloride Flush 3 ML SYRINGE IVFLUSH (21:21)
[2024-02-26] MEDS: oxyCODONE HCl Immed Release 5 MG TABLET 10 MG PO ×2 (02:22→08:56)
[2024-02-26 03:27] VITALS: BP 107/56; PULSE 65; RESP 16; TEMP 37.1; O2SAT 95
[2024-02-26] MEDS: Piperacillin Sodium/Tazobactam 3.375 GM in 0.9 % Sodium Chloride 50 ML IV (05:26)
--- NOTE | 2024-02-26 05:38 | PC.NURSE ---
throughout the night pt went to the BR afew times voided well. pt drink and eat snacks. c/o pain -04/27 provided prn meds per eMar. 3 bandages on abd. small blood from umbilical area, new bandage on. no passing gas yet. bs +, lung sounds clear, and O2 2L via NC 94%. will cont monitor.
[2024-02-26 07:11] VITALS: BP 139/65; PULSE 66; RESP 16; TEMP 36.8; O2SAT 95
--- NOTE | 2024-02-26 09:16 | P.PNGS_ITS ---
Subjective Subjective Date of Service: 02/26/24 Interval history: Seems to have good pain control Tolerating diet Says she has passed flatus Able to get out of bed Physical Exam 2 Vital Signs: Vital Signs: Last Vital Signs Temp 98.3 F 02/26/24 07:11 Pulse 66 02/26/24 07:11 Resp 16 02/26/24 07:11 BP 139/65 02/26/24 07:11 Pulse Ox 95 02/26/24 07:11 O2 Del Method Nasal Cannula 02/26/24 07:11 O2 Flow Rate 2 02/26/24 07:11 Oxygen Flow Rate 2 02/25/24 18:12 BMI result Body Mass Index 27.3 Const: General: comfortable and no acute distress Resp: Effort & Inspection: normal respiratory effort Cardio: Rate: regular rate GI: Other: Dressings dry Palpation (GI): Soft to palpation, not firm, Tenderness to palpation present (GI) (Appropriate tenderness on incision) and no guarding Objective Data Active Medications Lactated Ringer's (Lr) 1,000 mls @ 80 mls/hr IVCONT .[id number] [facility] Last Admin: 02/25/24 21:16 Dose: 80 mls/hr Documented By: EDGAR Piperacillin Sod/Tazobactam (Sod 3.375 gm/ Sodium Chloride) 50 mls @ 100 mls/hr IV Q6H [facility] Last Infusion: 02/26/24 06:11 Dose: Infused Documented By: EDGAR Morphine Sulfate (Morphine Sulfate 2 Mg/Ml Cartridge) 2 mg IVPUSH Q3H PRN; Protocol PRN Reason: Pain, Severe (Pain Scale 7-10) Last Admin: 02/25/24 13:46 Dose: 2 mg Documented By: HODAN Ondansetron HCl (Ondansetron Hcl 4 Mg/2 Ml Vial) 4 mg IVPUSH Q6H PRN PRN Reason: nausea/vomiting Oxycodone HCl (Oxycodone Hcl Immed Release 5 Mg Tablet) 10 mg PO Q4H PRN PRN Reason: Pain, Moderate(Pain Scale 4-6) Last Admin: 02/26/24 08:56 Dose: 10 mg Documented By: ZANE Sodium Chloride (0.9 % Sodium Chloride Flush 3 Ml Syringe) [facility] Last Admin: 02/26/24 08:57 Dose: Not Given Documented By: ZANE Non-Admin Reason: IV Running Labs 02/24/24 21:58 02/24/24 21:58 Procedures Date of Service Date of Service: 02/26/24 Progress Note: A&P Assessment and plan (1) Acute appendicitis: Status: Acute Assessment and Plan: Status post laparoscopic appendectomy Doing well Says she feels ready to go home Discharge instructions explained Follow-up in the office Time Spent With Patient Time: Total time managing care of this patient today ____ minutes. Quality Stroke Does the patient have a stroke diagnosis?: No VTE Prior VTE?: No VTE Risk Level:: Medical - moderate - high VTE Device Contraindication: N/A - Device Ordered VTE Drug Contraindication: N/A - Med Ordered
--- NOTE | 2024-02-26 09:54 | MHC.CM.PN ---
PT MEDICALLY CLEARED FOR DC HOME SELF CARE, PT WILL CALL FOR TRANSPORT
--- NOTE | 2024-02-26 14:23 | HO.POSTANES ---
Post Anesthesia Evaluation Post Anesthesia Evaluation Date of Service: 02/25/24 Vital Signs: Vital Signs Temp Pulse Resp BP Pulse Ox O2 Del Method O2 Flow Rate 02/26/24 07:11 98.3 F 66 16 139/65 95 Nasal Cannula 2 02/26/24 03:27 98.7 F 65 16 107/56 L 95 Nasal Cannula 2 Anesthesia: General Mental Status: Awake Pain Control: Satisfactory Nausea/Vomiting: None Hydration: Adequate Anesthesia-Related Issues: No Anes. Related Issues
--- NOTE | 2024-02-26 15:03 | PM.DS ---
DS: Providers Provider Date of Service: 02/26/24 Date of admission: 02/25/24 00:52 Date of discharge: 02/26/24 Primary care physician: Julieth Avila MD Attending physician on discharge: Ezequiel Rodriguez DS: Diagnosis Discharge Diagnosis (1) Acute appendicitis: Status: Acute DS: Summary Hospital Course Hospital Course: HPI AT ADMISSION: Sayda Herrera is a 63 year old female with PMH significant for emphysema, hx of sigmoid colon CA s/p resection 10 years ago at [facility] who presented to the ED with complaints of abdominal pain. Patient reports acute onset of sharp left lower quadrant pain yesterday. It has more become more localized to the RLQ this morning. Patient states that the pain is sharp, constant and is associated with nausea and multiple episodes of vomiting. She denies fevers, chills, diarrhea, constipation, sick contacts. Work up in the ED included CBC, BMP and LFTs which was significant for leukocytosis 16.5. CT scan abd/pelvis was performed which showed fluid-filled, dilated appendix with a few appendicoliths with mild surrounding stranding. HOSPITAL COURSE: She was admitted to the surgical service for further treatment of the acute appendicitis. Given the presence of appendicoliths, it was recommended to proceed with appendectomy and she was added onto the OR schedule for that day. She was kept NPO, on IVF and IV zosyn. On 02/25/24, laparoscopic appendectomy was performed by Dr. Rodriguez without complication. She was found to have acute appendicitis, with significant suppuration, erythematous and indurated appendix. She tolerated the procedure well. She had an uncomplicated recovery course. On POD #1, she felt well and had good pain control. She was tolerating a solid diet without nausea or vomiting. She was ambulating without difficulty. Her abdomen was benign with appropriate post op tenderness and clean/intact dressings. She felt ready for discharge to home. She was discharged on 02/26/24 in stable condition. She is to follow up in the office in 2 weeks. Status at Discharge Functional status at discharge: independent ambulation Overall status at discharge: patient is progressing back to baseline Time Attestation Discharge Coordination Time (in mins): 30 Quality: Safe Use of Opioids Does Pt have an Active Cancer Diagnosis on the Problem List?: No Quality: Stroke Does the patient have a stroke diagnosis?: No Physical Exam Vital Signs: Vital Signs: Last Vital Signs Temp 98.3 F 02/26/24 07:11 Pulse 66 02/26/24 07:11 Resp 16 02/26/24 07:11 BP 139/65 02/26/24 07:11 Pulse Ox 95 02/26/24 07:11 O2 Del Method Nasal Cannula 02/26/24 07:11 O2 Flow Rate 2 02/26/24 07:11 Oxygen Flow Rate 2 02/25/24 18:12 BMI result Body Mass Index 27.3 Const: General: comfortable, no acute distress and alert Orientation/consciousness: patient oriented x3 GI: Inspection: No distended and Yes incision (dressings c/d/i) Palpation (GI): Soft to palpation, Tenderness to palpation present (GI) (mild incisional ) and no guarding Skin: General skin exam: no rashes or lesions noted Neuro: General: patient oriented x3 and moves all extremities DS: Data Data Completed and Pending Pending studies at discharge: 02/25/24 19:40 Surgical [PTH] Routine Appendix, appendectomy: Acute suppurative appendicitis and periappendicitis with fibrinous adhesions. Discharge Plan Discharge Anticipated Discharge Date/Time: 02/26/24 09:11 Patient Disposition: Home, Self-Care Discharge Diagnosis: acute appendicitis Referrals: Ezequiel Rodriguez MD [Physician] - 2 Weeks Julieth Avila MD [Primary Care Provider] - 1 Week Discharge Medications: New oxycodone-acetaminophen [Percocet] 5-325 mg tablet 1 tab PO Q4-6H PRN (Reason: pain) Qty: 25 0RF Rx Instructions: Partial Fill upon patient request. ibuprofen 600 mg tablet 600 mg PO Q6H PRN (Reason: pain) Qty: 30 0RF Continued multivitamin Tablet 1 tab PO DAILY ibuprofen [Advil] 200 mg Tablet 400 mg PO Q6H PRN (Reason: Back Pain) cholecalciferol (vitamin D3) [Vitamin D3] 125 mcg (5,000 unit) Tablet 125 mcg PO DAILY cyanocobalamin (vitamin B-12) 1,000 mcg/mL Kit 1,000 mcg IM Q42D Rx Instructions: every 6-8 weeks Discharge Orders: Discharge Order (Routine); Ordered 02/26/24 Ordered By: Ezequiel Rodriguez Diet: Advance to usual diet Activity on Discharge: No heavy lifting Stand Alone Forms: Patient Portal Discharge page Print Language: Turkmen Activity Restrictions/Additional Instructions: If the incision area is tender, you may apply an ice pack for short intervals (No more than 20 minutes on, followed by at least 20 minutes off). Do not apply heat. Do not use creams, lotions, or topical antibiotics. These can cause infection or allergic reaction. Ok to shower 24 hours after your surgery. Remove bandaids in 2 days and replace. You have steri strips (small white cloth strips) covering your incision- these will fall off ~1 week. Follow up in office with Dr. Rodriguez in 2 weeks. ([phone]) No heavy lifting (>10-20lbs) or strenuous activity! Call Your Doctor If: -Your temperature exceeds 101.5? F -You experience excessive pain or swelling -You have an unexpected reaction to medication -You have excessive bleeding -You experience continued vomiting/nausea -Your incision begins to separate -Your incision shows signs of infection such as increased redness, swelling, excessive pain, drainage (light blood or clear fluid is normal) or heat Care Plan Goals: Return to baseline health and resume normal activities following recovery period. Health Concerns: acute appendicitis Plan of Treatment: s/p laparoscopic appendectomy f/u in office in 2 weeks pain control Assessment: Doing well post op Discharge Date/Time: 02/26/24 13:10
== END 2024-02-26 13:10 | disposition home or self-care (01) | DRG 234 ==
LOC: HO.ED 02-25 00:51 → HO.EDOVER 02-25 00:59 → HO.S3 02-25 20:16
PROVIDERS: Admitting Provider Surgery; Emergency Provider Emergency Medicine; PCP Internal Medicine; Visit Provider Surgery
PROC: 0DTJ4ZZ Resection of Appendix, Percutaneous Endoscopic Approach (ICD-10-PCS; CPT 44970; principal; 2024-02-25 14:30)
DX: K35.80 Unspecified acute appendicitis (principal); F17.210 Nicotine dependence, cigarettes, uncomplicated; Z71.6 Tobacco abuse counseling; J43.9 Emphysema, unspecified; Z85.038 Personal history of other malignant neoplasm of large intestine; Z79.899 Other long term (current) drug therapy
CPT/HCPCS: 44970; 36415; 74177; 80053; 80076; 81001; 83690; 84484; 85025; 88304; 93005; 99221; 99285; J0131; J0665; J1885; J2270; J2405; J2543; J2704; J3010; J7120; Q9967

== ENCOUNTER → 2024-02-24 21:28 | Outpatient (BNV) | payer OTHER, SELFPAY | PROVIDERS: Admitting Provider Surgery; Emergency Provider Emergency Medicine; Visit Provider Internal Medicine Cardiovascular Disease | DX: I49.9 Cardiac arrhythmia, unspecified (principal) | CPT/HCPCS: 93010 ==

== ENCOUNTER → 2024-02-25 00:52 | Outpatient (BNV) | payer OTHER, SELFPAY | PROVIDERS: Admitting Provider Surgery; Emergency Provider Emergency Medicine; PCP Internal Medicine; Visit Provider Surgery | DX: K35.80 Unspecified acute appendicitis (principal) | CPT/HCPCS: 44970; 99024 ==

== ENCOUNTER → 2024-02-25 00:52 | Outpatient (BNV) | payer OTHER, SELFPAY | PROVIDERS: Admitting Provider Surgery; Emergency Provider Emergency Medicine; PCP Internal Medicine; Visit Provider Physician Assistant Surgical | DX: K35.80 Unspecified acute appendicitis (principal) | CPT/HCPCS: 99499 ==

== ENCOUNTER 2024-03-10 14:19 | Outpatient (AMB) | payer OTHER, SELFPAY ==
--- NOTE | 2024-03-10 14:20 | A.OFFVIS_ITS ---
Intake Visit Reasons: post lap appy inpatient Intake Note: This patient presents for a post-op assessment status post inpatient laparoscopic appendectomy. Patient c/o; reports no complaints pertaining to surgery. 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 She underwent laparoscopic appendectomy for acute appendicitis last 2023. She tolerated procedure well. She currently denies significant complaints. She says she has good oral intake. [facility] Medical History Colon cancer Surgical History History of laparoscopic appendectomy (~02/25/24) History of partial colectomy Social History Household Members: Spouse Housing: House Do you presently have visiting nurse or other home services: No Patient Tobacco Use Status: Current everyday Tobacco user Tobacco use type: Cigarette Cigarette Packs Per Day: 1 Cigarettes Per Day: 20.0 Years Smoked: 30 Second Hand Smoke Exposure: No Advance Directives Date on File: 02/25/24 service: No Review of Systems Const Denies chills and Denies fever(s) Card Denies chest pain, Denies dyspnea and Denies dyspnea on exertion Resp Denies cough, Denies dyspnea and Denies dyspnea on exertion GI Denies hematochezia and Denies change in bowel habits Denies hematuria Musc Denies back pain and Denies limited range of motion Neuro Denies focal weakness and Denies convulsions Psych Denies depression and Denies mood swings Physical Exam Const General: comfortable and no acute distress GI Other: All incisions are well healed, not infected Palpation (GI): Soft to palpation, not firm, nontender and no guarding Assessment & Plan Assessment & Plan (1) Acute appendicitis: Code(s): K35.80 - Unspecified acute appendicitis Category: Medical Plan: Status post laparoscopic appendectomy. She is doing very well postoperatively. All incisions are well healed. I advised her to avoid lifting anything more than 15 lb for at least 2 more weeks. She can otherwise follow up on a p.r.n. basis. Coding Level of Care Code Global (89534) Diagnoses Acute appendicitis K35.80
== END 2024-03-10 14:37 | disposition home or self-care (01) ==
PROVIDERS: PCP Internal Medicine; Visit Provider Surgery
DX: K35.80 Unspecified acute appendicitis (principal)
CPT/HCPCS: 99024

== ENCOUNTER → 2024-03-10 14:19 | Outpatient (BNVA) | payer OTHER, SELFPAY | PROVIDERS: PCP Internal Medicine; Visit Provider Surgery ==